=== PATIENT | female | born 1970 | race Caucasian/White ===

== ENCOUNTER 2024-03-11 03:35 | Emergency (ER) | payer MEDICAID ==
[2024-03-11] MEDS: Sodium Chloride 0.9% 10 ML Syringe FLUSH PRN (03:44)
[2024-03-11] MEDS: Lidocaine 1% with EPINEPHrine 1:100,000 20 ML MDV INJECT ONE (03:56)
[2024-03-11 04:04] LABS: HEMATOCRIT 29.1 % (37.0-47.0); MEAN CORPUSCULAR HEMOGLOBIN 26.1 pg (27.0-34.0); MEAN CORPUSCULAR HGB CONC 30.9 g/dL (33.0-35.0); MEAN CORPUSCULAR VOLUME 84.3 fL (80-100); PLATELET COUNT,PLT 364 10^3/uL (150-450); RED BLOOD CELL COUNT 3.45 10^6/uL (4.2-5.4); WHITE BLOOD CELL COUNT,WBC 12.4 10^3/uL (5.0-10.0)
[2024-03-11 04:08] LABS: BASOPHILS PERCENT AUTO 0.4 % (0.0-1.0); EOSINOPHILS PERCENT AUTO 5.6 % (1.0-3.0); LYMPHOCYTES PERCENT AUTO 16.9 % (20.5-50.1); MONOCYTES PERCENT AUTO 9.8 % (2-8); NEUTROPHILS PERCENT AUTO 67.3 % (42.2-75.2)
[2024-03-11 04:23] LABS: ALBUMIN 2.8 g/dL (3.4-5.0); ANION GAP 13.5 mEq/L (7-13); BILIRUBIN TOTAL 0.3 mg/dL (0.2-1.0); BUN/CREATININE RATIO 32.2 (No establ ref range); CREATININE 1.49 mg/dL (0.55-1.02); EST CRCL DRUG DOSING (CG) 39.94 mL/min; POTASSIUM,K 4.5 mmol/L (3.5-5.1); PROTEIN TOTAL,TP 7.1 g/dL (6.4-8.2)
[2024-03-11 04:41] LABS: BAND PERCENT MAN 3 %; EOSINOPHILS PERCENT MAN 5 % (1-3); LYMPHOCYTES PERCENT MAN 16 % (20-50); MONOCYTES PERCENT MAN 7 % (2-8); SEG NEUTROPHILS PERCENT MAN 69 % (42-75)
[2024-03-11 04:44] LABS: A/G RATIO 0.65
[2024-03-11] MEDS: Sulfamethoxazole/Trimethoprim 800-160 MG Tab PO ONE (05:22)
[2024-03-11] MEDS: Acetaminophen/HYDROcodone 325-5 MG Tab PO ONE (05:22)
[2024-03-11] MEDS: Sodium Chloride 0.9% 500 ML IV ONE (05:22)
== END 2024-03-11 06:47 | disposition home or self-care (01) ==
LOC: DL.ED 03:35
DX: L02.31 Cutaneous abscess of buttock (principal); L03.317 Cellulitis of buttock; E10.621 Type 1 diabetes mellitus with foot ulcer; L97.519 Non-pressure chronic ulcer of other part of right foot with unspecified severity
CPT/HCPCS: 10060; 36415; 80053; 83605; 85025; 87040; 96360; 99284; 99284-25; A9270-GY; J3490; J7030

== ENCOUNTER 2024-09-03 09:30 | Day surgery (SDC) | payer MEDICAID ==
[2024-09-03] MEDS ORDERED: Acetaminophen/Codeine 300-30 MG Tab PO PRN (09:45)
[2024-09-03] MEDS ORDERED: Acetaminophen 325 MG Tab PO PRN (09:45)
[2024-09-03] MEDS ORDERED: Ondansetron 4 MG/2 ML SDV IVPUSH PRN (09:45)
[2024-09-03] MEDS: Sodium Chloride 0.9% 10 ML Syringe FLUSH PRN (09:56)
[2024-09-03] MEDS: Proparacaine 0.5% Ophth Soln 15 ML Bottle EYERT ONE ×2 (10:03→10:47)
[2024-09-03] MEDS: Povidone-Iodine 5% Sterile Ophth Soln 30 ML Bottle EYERT ONE ×2 (10:04→10:48)
[2024-09-03] MEDS: Moxifloxacin 0.5% Ophth Soln 3 ML Bottle EYERT ONE (10:04)
[2024-09-03] MEDS: Tropicamide 1% Ophth Soln 15 ML Bottle EYERT ONE (10:05)
[2024-09-03] MEDS: Timolol Maleate 0.5% Ophth Soln 5 ML Bottle EYERT ONE (10:06)
[2024-09-03] MEDS: Phenylephrine 10% Ophth Soln 5 ML Bot EYERT ONE (10:06)
[2024-09-03] MEDS: Cataract Ophth Solution EYERT ONE (10:07)
[2024-09-03] MEDS: Lidocaine 1% 30 ML SDV ONE (11:00)
[2024-09-03] MEDS: VANCOmycin 500 MG SDV EYERT ONE (11:00)
[2024-09-03] MEDS: Apraclonidine 0.5% Ophth Soln 5 ML Bot EYERT ONE (11:05)
[2024-09-03] MEDS: Diclofenac Sodium 0.1% Ophth Soln 5 ML Bottle EYERT ONE (11:05)
[2024-09-03] MEDS: Dexamethasone/Neomycin/Polymyxin B Ophth Oint 3.5 GM Tube EYERT ONE (11:06)
== END 2024-09-03 11:38 | disposition home or self-care (01) ==
LOC: DL.SDS 09:30
PROVIDERS: ATTEND Ophthalmology
DX: E11.36 Type 2 diabetes mellitus with diabetic cataract (principal); H25.811 Combined forms of age-related cataract, right eye; I10 Essential (primary) hypertension; F17.210 Nicotine dependence, cigarettes, uncomplicated; Z79.84 Long term (current) use of oral hypoglycemic drugs; Z79.899 Other long term (current) drug therapy
CPT/HCPCS: 66982; A9270; C1780; J3370; 00142; J3490

== ENCOUNTER 2024-10-06 19:40 | Inpatient (IN) | payer MEDICAID ==
[2024-10-06] MEDS: Albuterol/Ipratropium 3.0-0.5 MG/3 ML Neb Soln NEB ONE (20:14)
[2024-10-06] MEDS: Sodium Chloride 0.9% 500 ML IV SCH (20:14)
[2024-10-06 20:27] LABS: HEMATOCRIT 32.3 % (37.0-47.0); HEMOGLOBIN 9.9 g/dL (12.0-16.0); MEAN CORPUSCULAR HGB CONC 30.7 g/dL (33.0-35.0); MEAN CORPUSCULAR VOLUME 97.9 fL (80-100); PLATELET COUNT,PLT 253 10^3/uL (150-450); WHITE BLOOD CELL COUNT,WBC 7.7 10^3/uL (5.0-10.0)
[2024-10-06 20:28] LABS: BASOPHILS PERCENT AUTO 0.3 % (0.0-1.0); EOSINOPHILS PERCENT AUTO 0.1 % (1.0-3.0); LYMPHOCYTES PERCENT AUTO 33.2 % (20.5-50.1); MONOCYTES PERCENT AUTO 14.7 % (2-8); NEUTROPHILS PERCENT AUTO 51.7 % (42.2-75.2)
[2024-10-06] MEDS: methylPREDNISolone Sodium Succinate 125 MG/2 ML SDV IVPUSH ONE (20:36)
[2024-10-06 20:45] LABS: A/G RATIO 0.79; ANION GAP 12.1 mEq/L (7-13); BILIRUBIN TOTAL 0.3 mg/dL (0.2-1.0); BUN/CREATININE RATIO 22.9 (No establ ref range); CALCIUM 8.6 mg/dL (8.5-10.1); CREATININE 1.31 mg/dL (0.55-1.02); EST CRCL DRUG DOSING (CG) 45.42 mL/min; MAGNESIUM 2.1 mg/dL (1.8-2.4); POTASSIUM,K 5.1 mmol/L (3.5-5.1); PROTEIN TOTAL,TP 6.8 g/dL (6.4-8.2)
[2024-10-06 20:48] LABS: LACTIC ACID 1.3 mmol/L (0.4-2.0)
[2024-10-06 20:50] LABS: BAND PERCENT MAN 5 %; LYMPHOCYTES PERCENT MAN 33 % (20-50); MONOCYTES PERCENT MAN 12 % (2-8); SEG NEUTROPHILS PERCENT MAN 50 % (42-75)
[2024-10-06] MEDS: cefTRIAXone 2 GM in Sodium Chloride 0.9% 100 ML IV ONE (22:29)
[2024-10-06] MEDS: Azithromycin 500 MG in Sodium Chloride 0.9% 250 ML IV ONE (22:51)
[2024-10-06] MEDS: Iopamidol 755 Mg/ML 100 ML Bottle IVPUSH ONE (23:07)
[2024-10-06] MEDS ORDERED: Metoprolol Tartrate 5 MG/5 ML SDV IVPUSH PRN (23:29)
[2024-10-06] MEDS ORDERED: hydrALAZINE 20 MG/ML SDV IVPUSH PRN (23:29)
[2024-10-06] MEDS ORDERED: Polyethylene Glycol 3350 Powder 17 GM Packet PO PRN (23:35)
[2024-10-06] MEDS ORDERED: Bisacodyl 5 MG Tab PO PRN (23:35)
[2024-10-06] MEDS ORDERED: Magnesium Hydroxide 400 MG/5 ML Susp 30 ML Cup PO PRN (23:35)
[2024-10-06] MEDS ORDERED: Ondansetron 4 MG/2 ML SDV IVPUSH PRN (23:35)
[2024-10-06] MEDS ORDERED: HYDROmorphone 1 MG/ML Syringe IVPUSH PRN (23:35)
[2024-10-06] MEDS ORDERED: Naloxone 2 MG/2 ML Syringe IVPUSH PRN (23:35)
[2024-10-06] MEDS ORDERED: Acetaminophen 325 MG Tab PO PRN (23:35)
[2024-10-06] MEDS ORDERED: Sennosides/Docusate Sodium 50-8.6 MG Tab PO PRN (23:35)
[2024-10-06] MEDS ORDERED: Glucagon,Human Recombinant 1 MG Vial IM PRN (23:45)
[2024-10-06] MEDS ORDERED: 50% Dextrose in Water 50 ML Syringe IVPUSH PRN (23:45)
[2024-10-06] MEDS ORDERED: Non-Formulary Medication 1 Each (Magnesium Oxide [Magnesium] 400 MG Capsule) PO SCH (23:45)
[2024-10-07 00:02] LABS: HEMOGLOBIN A1C 6.4 % (<5.7)
[2024-10-07 00:27] LABS: C-REACTIVE PROTEIN 3.32 ng/dL (<=0.50)
[2024-10-07] MEDS: Nystatin Topical Powder 60 GM Bottle TOP ONE (00:55)
[2024-10-07] MEDS: Menthol/Zinc Oxide Ointment 113 GM Tube TOP PRN (00:55)
[2024-10-07] MEDS: Nicotine 21 MG/24 Hr Patch TRDERM STA (00:56)
[2024-10-07] MEDS: Ziprasidone Mesylate 20 MG Vial IM PRN (00:58)
[2024-10-07] MEDS: Benzonatate 100 MG Cap PO PRN (01:00)
[2024-10-07] MEDS: Melatonin 3 MG Tab PO PRN (01:00)
[2024-10-07] MEDS: Benzocaine/Cetylpyridinium/Menthol Lozenge MUCMEM PRN (01:02)
[2024-10-07] MEDS: Famotidine 20 MG/2 ML SDV IVPUSH ONE (01:03)
[2024-10-07] MEDS: methylPREDNISolone Sodium Succinate 125 MG/2 ML SDV IVPUSH SCH (01:05)
[2024-10-07] MEDS: Albuterol/Ipratropium 3.0-0.5 MG/3 ML Neb Soln NEB SCH (05:10)
[2024-10-07] MEDS: Tiotropium Bromide 4 GM Inhalation Spray (2.5mcg/1 dose; 10 doses) INH SCH (05:10)
[2024-10-07] MEDS: Formoterol/Mometasone 200-5 MCG 8.8 GM Inhaler INH SCH (05:11)
[2024-10-07 06:31] LABS: BASOPHILS PERCENT AUTO 0.1 % (0.0-1.0); LYMPHOCYTES PERCENT AUTO 15.3 % (20.5-50.1); MEAN CORPUSCULAR HEMOGLOBIN 29.3 pg (27.0-34.0); MEAN CORPUSCULAR HGB CONC 30.3 g/dL (33.0-35.0); MEAN CORPUSCULAR VOLUME 96.8 fL (80-100); MONOCYTES PERCENT AUTO 3.3 % (2-8); NEUTROPHILS PERCENT AUTO 81.3 % (42.2-75.2); PLATELET COUNT,PLT 280 10^3/uL (150-450); RED BLOOD CELL COUNT 3.41 10^6/uL (4.2-5.4)
[2024-10-07 07:00] LABS: ALBUMIN 2.8 g/dL (3.4-5.0); ANION GAP 17.3 mEq/L (7-13); BILIRUBIN TOTAL 0.2 mg/dL (0.2-1.0); BUN/CREATININE RATIO 21.9 (No establ ref range); C-REACTIVE PROTEIN 3.43 ng/dL (<=0.50); CALCIUM 8.4 mg/dL (8.5-10.1); CREATININE 1.14 mg/dL (0.55-1.02); EST CRCL DRUG DOSING (CG) 52.2 mL/min; MAGNESIUM 1.9 mg/dL (1.8-2.4); POTASSIUM,K 5.3 mmol/L (3.5-5.1)
[2024-10-07 07:03] LABS: A/G RATIO 0.67
[2024-10-07] MEDS ORDERED: Non-Formulary Medication 1 Each (Magnesium Oxide [Magnesium] 400 MG) PO SCH (09:00)
[2024-10-07] MEDS: Insulin Lispro 100 Units/ML 3 ML Vial SUBCUT SCH (09:38)
[2024-10-07] MEDS: Magnesium Oxide 400 MG Tab PO SCH (09:41)
[2024-10-07] MEDS: Acetaminophen/oxyCODONE 325-5 MG Tab PO PRN (09:41)
[2024-10-07] MEDS: Saccharomyces Boulardii (Probiotic) 250 MG Cap PO SCH (09:41)
[2024-10-07] MEDS: DULoxetine 30 MG Cap PO SCH (09:45)
[2024-10-07] MEDS: Azithromycin 500 MG in Sodium Chloride 0.9% 250 ML IV SCH (09:47)
[2024-10-07] MEDS: Enoxaparin 40 MG/0.4 ML Syringe SUBCUT SCH (09:49)
[2024-10-07] MEDS: Nystatin Topical Powder 60 GM Bottle TOP SCH (09:50)
[2024-10-07] MEDS: guaiFENesin 600 MG Tab.ER PO SCH (10:01)
[2024-10-07] MEDS ORDERED: MENTHOL TP PRN (11:17)
[2024-10-07] MEDS ORDERED: Menthol 10%/Methyl Salicylate 15% 85 GM Tube TOP PRN (11:17)
[2024-10-07] MEDS: Sodium Polystyrene Sulfonate 15 GM/60 ML Susp 60 ML Bot PO ONE ×2 (13:52→13:56)
[2024-10-07] MEDS: Codeine/guaiFENesin 10-100 MG/5 ML Syrup 5 ML Cup PO PRN (15:25)
[2024-10-07] MEDS ORDERED: Azithromycin 500 MG in Sodium Chloride 0.9% 250 ML IV SCH (21:00)
[2024-10-07] MEDS ORDERED: Insulin Glarg,Human.Rec.Analog 100 Unit/ML 10 ML Vial SUBCUT SCH (21:00)
[2024-10-07] MEDS: Insulin Glarg,Human.Rec.Analog 100 Unit/ML 10 ML Vial SUBCUT SCH (21:07)
[2024-10-07] MEDS: Acetaminophen 500 MG Tab PO SCH (21:10)
[2024-10-07] MEDS: Famotidine 20 MG Tab PO SCH (21:11)
[2024-10-07] MEDS: Sodium Chloride 0.9% 10 ML Syringe FLUSH PRN (21:12)
[2024-10-07] MEDS: cefTRIAXone 2 GM Vial IVPUSH SCH (21:16)
[2024-10-07] MEDS: Nicotine 21 MG/24 Hr Patch TRDERM SCH (21:34)
[2024-10-07] MEDS: Empagliflozin 10 MG Tab PO SCH (21:37)
[2024-10-08] MEDS: guaiFENesin/Dextromethorphan 100-10 MG/5 ML Soln 5 ML Cup PO PRN (02:03)
[2024-10-08 06:38] LABS: HEMATOCRIT 33.5 % (37.0-47.0); HEMOGLOBIN 10.4 g/dL (12.0-16.0); MEAN CORPUSCULAR HEMOGLOBIN 29.5 pg (27.0-34.0); MEAN CORPUSCULAR VOLUME 94.9 fL (80-100); PLATELET COUNT,PLT 399 10^3/uL (150-450); RED BLOOD CELL COUNT 3.53 10^6/uL (4.2-5.4); WHITE BLOOD CELL COUNT,WBC 16.8 10^3/uL (5.0-10.0)
[2024-10-08 06:44] LABS: BASOPHILS PERCENT AUTO 0.1 % (0.0-1.0); MONOCYTES PERCENT AUTO 5.1 % (2-8); NEUTROPHILS PERCENT AUTO 84.8 % (42.2-75.2)
[2024-10-08 06:58] LABS: BAND PERCENT MAN 2 %; LYMPHOCYTES PERCENT MAN 8 % (20-50); MONOCYTES PERCENT MAN 8 % (2-8); SEG NEUTROPHILS PERCENT MAN 82 % (42-75)
[2024-10-08 07:02] LABS: A/G RATIO 0.63; ALBUMIN 2.7 g/dL (3.4-5.0); ANION GAP 12.9 mEq/L (7-13); BILIRUBIN TOTAL 0.2 mg/dL (0.2-1.0); C-REACTIVE PROTEIN 2.08 ng/dL (<=0.50); CALCIUM 8.5 mg/dL (8.5-10.1); CREATININE 1.16 mg/dL (0.55-1.02); EST CRCL DRUG DOSING (CG) 51.3 mL/min; MAGNESIUM 2.1 mg/dL (1.8-2.4); POTASSIUM,K 4.9 mmol/L (3.5-5.1)
[2024-10-08] MEDS: Multivitamin Tab PO SCH (09:59)
[2024-10-08] MEDS: ACETYLCYSTEINE 1200 MG PO SCH (17:48)
[2024-10-08] MEDS ORDERED: glipiZIDE 5 MG Tab.ER PO SCH (21:00)
[2024-10-08] MEDS: cloNIDine 0.1 MG Tab PO SCH (21:02)
[2024-10-08] MEDS: glipiZIDE 2.5 MG Tab.ER PO SCH (21:13)
[2024-10-08] MEDS: methylPREDNISolone Sodium Succinate 125 MG/2 ML SDV IVPUSH SCH (21:20)
[2024-10-09 06:50] LABS: HEMATOCRIT 34.1 % (37.0-47.0); HEMOGLOBIN 10.7 g/dL (12.0-16.0); MEAN CORPUSCULAR HEMOGLOBIN 29.7 pg (27.0-34.0); MEAN CORPUSCULAR HGB CONC 31.4 g/dL (33.0-35.0); MEAN CORPUSCULAR VOLUME 94.7 fL (80-100); PLATELET COUNT,PLT 452 10^3/uL (150-450); WHITE BLOOD CELL COUNT,WBC 18.4 10^3/uL (5.0-10.0)
[2024-10-09 07:15] LABS: ALBUMIN 2.7 g/dL (3.4-5.0); ANION GAP 13.3 mEq/L (7-13); BILIRUBIN TOTAL 0.2 mg/dL (0.2-1.0); BUN/CREATININE RATIO 39.5 (No establ ref range); C-REACTIVE PROTEIN 1.25 ng/dL (<=0.50); CALCIUM 8.8 mg/dL (8.5-10.1); CREATININE 1.19 mg/dL (0.55-1.02); POTASSIUM,K 4.3 mmol/L (3.5-5.1); PROTEIN TOTAL,TP 6.8 g/dL (6.4-8.2)
[2024-10-09 07:23] LABS: BASOPHILS PERCENT AUTO 0.2 % (0.0-1.0); LYMPHOCYTES PERCENT AUTO 9.2 % (20.5-50.1); MONOCYTES PERCENT AUTO 7.9 % (2-8); NEUTROPHILS PERCENT AUTO 82.7 % (42.2-75.2)
[2024-10-09 07:24] LABS: A/G RATIO 0.66
[2024-10-09 07:49] LABS: SEG NEUTROPHILS PERCENT MAN 81 % (42-75)
[2024-10-09 07:50] LABS: BAND PERCENT MAN 2 %; LYMPHOCYTES PERCENT MAN 9 % (20-50); MONOCYTES PERCENT MAN 8 % (2-8)
[2024-10-09] MEDS ORDERED: glipiZIDE 5 MG Tab.ER PO SCH (08:30)
[2024-10-09] MEDS: methylPREDNISolone Sodium Succinate 125 MG/2 ML SDV IVPUSH SCH (14:06)
[2024-10-09] MEDS: KETOROLAC EYERT SCH (15:58)
[2024-10-10 06:51] LABS: BASOPHILS PERCENT AUTO 0.3 % (0.0-1.0); HEMATOCRIT 37.3 % (37.0-47.0); HEMOGLOBIN 11.6 g/dL (12.0-16.0); LYMPHOCYTES PERCENT AUTO 8.5 % (20.5-50.1); MEAN CORPUSCULAR HEMOGLOBIN 29.1 pg (27.0-34.0); MEAN CORPUSCULAR HGB CONC 31.1 g/dL (33.0-35.0); MEAN CORPUSCULAR VOLUME 93.5 fL (80-100); MONOCYTES PERCENT AUTO 8.1 % (2-8); NEUTROPHILS PERCENT AUTO 83.1 % (42.2-75.2); PLATELET COUNT,PLT 484 10^3/uL (150-450); RED BLOOD CELL COUNT 3.99 10^6/uL (4.2-5.4); WHITE BLOOD CELL COUNT,WBC 16.5 10^3/uL (5.0-10.0)
[2024-10-10 07:21] LABS: ALBUMIN 2.7 g/dL (3.4-5.0); ANION GAP 16.3 mEq/L (7-13); BILIRUBIN TOTAL 0.2 mg/dL (0.2-1.0); BUN/CREATININE RATIO 43.2 (No establ ref range); C-REACTIVE PROTEIN 0.7 ng/dL (<=0.50); CREATININE 1.25 mg/dL (0.55-1.02); EST CRCL DRUG DOSING (CG) 47.6 mL/min; MAGNESIUM 2.1 mg/dL (1.8-2.4); POTASSIUM,K 4.3 mmol/L (3.5-5.1); PROTEIN TOTAL,TP 6.9 g/dL (6.4-8.2)
[2024-10-10 07:22] LABS: A/G RATIO 0.64
[2024-10-10] MEDS: methylPREDNISolone Sodium Succinate 125 MG/2 ML SDV IVPUSH SCH (07:53)
[2024-10-10] MEDS: glipiZIDE 5 MG Tab.ER PO SCH (08:33)
[2024-10-10] MEDS: PALIPERIDONE PALMITATE 234 MG/1.5 ML IM SCH (10:09)
== END 2024-10-10 13:10 | disposition home or self-care (01) | DRG 193 ==
LOC: DL.ED 19:40 → DL.MS 22:46
PROVIDERS: ADMIT Internal Medicine; ATTEND Internal Medicine
DX: J18.9 Pneumonia, unspecified organism (principal); J96.01 Acute respiratory failure with hypoxia; N18.9 Chronic kidney disease, unspecified; J96.02 Acute respiratory failure with hypercapnia; J44.0 Chronic obstructive pulmonary disease with (acute) lower respiratory infection; J44.1 Chronic obstructive pulmonary disease with (acute) exacerbation; H91.90 Unspecified hearing loss, unspecified ear; E78.00 Pure hypercholesterolemia, unspecified; F17.210 Nicotine dependence, cigarettes, uncomplicated; N18.30 Chronic kidney disease, stage 3 unspecified; E11.22 Type 2 diabetes mellitus with diabetic chronic kidney disease; Z68.38 Body mass index [BMI] 38.0-38.9, adult; E11.40 Type 2 diabetes mellitus with diabetic neuropathy, unspecified; M19.90 Unspecified osteoarthritis, unspecified site; G89.29 Other chronic pain; K59.00 Constipation, unspecified; D63.1 Anemia in chronic kidney disease; F20.9 Schizophrenia, unspecified; F31.9 Bipolar disorder, unspecified; F42.9 Obsessive-compulsive disorder, unspecified; F15.90 Other stimulant use, unspecified, uncomplicated; I12.9 Hypertensive chronic kidney disease with stage 1 through stage 4 chronic kidney disease, or unspecified chronic kidney disease; D50.9 Iron deficiency anemia, unspecified; E11.65 Type 2 diabetes mellitus with hyperglycemia; E11.621 Type 2 diabetes mellitus with foot ulcer; L97.519 Non-pressure chronic ulcer of other part of right foot with unspecified severity; E66.812 Obesity, class 2; H26.9 Unspecified cataract; Z74.09 Other reduced mobility; E88.09 Other disorders of plasma-protein metabolism, not elsewhere classified; Z68.37 Body mass index [BMI] 37.0-37.9, adult; Z79.1 Long term (current) use of non-steroidal anti-inflammatories (NSAID); Z79.84 Long term (current) use of oral hypoglycemic drugs; Z79.891 Long term (current) use of opiate analgesic; Z98.49 Cataract extraction status, unspecified eye; Z89.431 Acquired absence of right foot; Z79.01 Long term (current) use of anticoagulants; Z79.899 Other long term (current) drug therapy; Z79.02 Long term (current) use of antithrombotics/antiplatelets; Z90.89 Acquired absence of other organs; Z90.710 Acquired absence of both cervix and uterus; Z98.51 Tubal ligation status; Z98.890 Other specified postprocedural states; Z71.6 Tobacco abuse counseling
CPT/HCPCS: 36415; 71046; 80053; 83036; 83605; 83735; 83880; 84145; 84484; 85025; 86140; 87040 ×2; 87428; 93005; 93010; 96361; 96365; 96375; 99285 ×2; J0696; J2919; J7040; 71275; 82947; 87081; 87430; 94640; 99223; 99232; 99239; A9270-GY; J0456; J1650; J1815-GY; J3486; J3490; J7050; J7620-GY; Q9967

== ENCOUNTER 2025-03-05 05:48 | Day surgery (SDC) | payer MEDICAID ==
[2025-03-05] MEDS ORDERED: Propofol 200 MG/20 ML SDV ONE (05:57)
[2025-03-05] MEDS ORDERED: Dextrose 5%-0.45% NaCl 1,000 ML IV SCH (06:00)
[2025-03-05] MEDS: Lactated Ringers 1,000 ML IV SCH (06:42)
== END 2025-03-05 09:02 | disposition home or self-care (01) ==
LOC: DL.ENDO 05:48
PROVIDERS: ATTEND Internal Medicine Gastroenterology
DX: K59.09 Other constipation (principal); E11.9 Type 2 diabetes mellitus without complications; E66.09 Other obesity due to excess calories
CPT/HCPCS: 45378; J7120